=== PATIENT | male | born 1950 | race Caucasian/White ===

== ENCOUNTER 2017-12-26 07:52 | Day surgery (SDC) | payer MEDICARE ==
[~2017-12-26] VITALS: Ht 175.3 cm; Wt 113.2 kg
[~2017-12-26 07:52] MED LIST: ALLO300; AMLO10; Bactrim Ds Tab1 EACH; Benicar40 MG; COLE625; Carvedilol12.5 MG; DUTA.5; NAPR500; TAMS.4ER
== END 2017-12-26 09:54 | disposition home or self-care (01) ==
LOC: ORSCSDS 07:52
PROVIDERS: Internal Medicine Gastroenterology
PROC: 0DBM8ZX Excision of Descending Colon, Via Natural or Artificial Opening Endoscopic, Diagnostic (ICD-10-PCS; principal; 2017-12-26 09:00)
PROC: 0DBK8ZX Excision of Ascending Colon, Via Natural or Artificial Opening Endoscopic, Diagnostic (ICD-10-PCS; principal; 2017-12-26 09:00)
PROC: 0DBL8ZX Excision of Transverse Colon, Via Natural or Artificial Opening Endoscopic, Diagnostic (ICD-10-PCS; principal; 2017-12-26 09:00)
DX: Z12.11 Encounter for screening for malignant neoplasm of colon (principal); K63.5 Polyp of colon; D12.2 Benign neoplasm of ascending colon; D12.3 Benign neoplasm of transverse colon; D12.4 Benign neoplasm of descending colon; K64.8 Other hemorrhoids; K57.30 Diverticulosis of large intestine without perforation or abscess without bleeding; Z86.010 Personal history of colon polyps; E78.5 Hyperlipidemia, unspecified; G47.33 Obstructive sleep apnea (adult) (pediatric); I10 Essential (primary) hypertension; F17.210 Nicotine dependence, cigarettes, uncomplicated; Z79.899 Other long term (current) drug therapy
CPT/HCPCS: 82947; 88305; J7120

== ENCOUNTER 2018-12-18 16:23 | Emergency (ER) | payer OTHER, MEDICARE ==
[~2018-12-18] VITALS: Ht 175.3 cm; Wt 113.4 kg
[2018-12-18] MEDS ORDERED: IRBESARTAN-HCT1 EACH PO (17:13)
[2018-12-18] MEDS ORDERED: PIOG15 PO (17:13)
[2018-12-18] MEDS ORDERED: AMLO10 PO (17:13)
[2018-12-18] MEDS ORDERED: CARV25 PO (17:13)
[2018-12-18] MEDS ORDERED: TAMS.4ER PO (17:14)
[2018-12-18] MEDS ORDERED: ALLO300 PO (17:14)
[2018-12-18] MEDS ORDERED: HYDR1TAB94 PO (17:34)
== END 2018-12-18 17:41 | disposition home or self-care (01) ==
LOC: ER 16:23
DX: S20.212A Contusion of left front wall of thorax, initial encounter (principal); F17.200 Nicotine dependence, unspecified, uncomplicated; V49.9XXA Car occupant (driver) (passenger) injured in unspecified traffic accident, initial encounter
CPT/HCPCS: 71046; 99284-25

== ENCOUNTER 2022-05-09 10:19 | Day surgery (SDC) | payer MEDICARE, BC ==
[~2022-05-09] VITALS: Ht 175.3 cm; Wt 114.2 kg
[~2022-05-09 10:19] MED LIST changes: +ALLO300 PO; +AMLO10 PO; +CARV25 PO; +HYDR1TAB94 PO; +IRBESARTAN-HCT1 EACH PO; +PIOG15 PO; +TAMS.4ER PO
[2022-05-09] MEDS ORDERED: HYDCHL25 (10:41)
[2022-05-09] MEDS ORDERED: DUTA.5 (10:42)
== END 2022-05-09 13:10 | disposition home or self-care (01) ==
LOC: ORSCSDS 10:19
PROVIDERS: Internal Medicine Gastroenterology
PROC: 0DBL8ZX Excision of Transverse Colon, Via Natural or Artificial Opening Endoscopic, Diagnostic (ICD-10-PCS; principal; 2022-05-09 12:00)
PROC: 0DBK8ZX Excision of Ascending Colon, Via Natural or Artificial Opening Endoscopic, Diagnostic (ICD-10-PCS; principal; 2022-05-09 12:00)
DX: Z12.11 Encounter for screening for malignant neoplasm of colon (principal); Z86.010 Personal history of colon polyps; D12.2 Benign neoplasm of ascending colon; D12.3 Benign neoplasm of transverse colon; K57.30 Diverticulosis of large intestine without perforation or abscess without bleeding; K64.8 Other hemorrhoids; I10 Essential (primary) hypertension; E78.5 Hyperlipidemia, unspecified; G47.33 Obstructive sleep apnea (adult) (pediatric); Z79.899 Other long term (current) drug therapy; F17.210 Nicotine dependence, cigarettes, uncomplicated; E66.9 Obesity, unspecified; Z68.37 Body mass index [BMI] 37.0-37.9, adult; E11.9 Type 2 diabetes mellitus without complications; M10.9 Gout, unspecified; N40.0 Benign prostatic hyperplasia without lower urinary tract symptoms
CPT/HCPCS: 82947; 88305; J2370; J2704; J7120

== ENCOUNTER 2025-08-19 06:41 | Day surgery (SDC) | payer OTHER ==
[~2025-08-19] VITALS: Ht 175.3 cm; Wt 115.3 kg
[~2025-08-19 06:41] MED LIST changes: +HYDCHL25
[2025-08-19] MEDS ORDERED: LOSA25 (07:06)
[2025-08-19] MEDS ORDERED: OZEMPIC1 MG/0.72 (07:09)
[2025-08-19 09:19] VITALS: BP 121/66
== END 2025-08-19 09:13 | disposition home or self-care (01) ==
LOC: ORSCSDS 06:41
DX: Z12.11 Encounter for screening for malignant neoplasm of colon (principal); D12.0 Benign neoplasm of cecum; D12.2 Benign neoplasm of ascending colon; K57.30 Diverticulosis of large intestine without perforation or abscess without bleeding; Z86.0101 Personal history of adenomatous and serrated colon polyps; I10 Essential (primary) hypertension; E78.5 Hyperlipidemia, unspecified; G47.33 Obstructive sleep apnea (adult) (pediatric); E11.9 Type 2 diabetes mellitus without complications; N40.0 Benign prostatic hyperplasia without lower urinary tract symptoms; E66.01 Morbid (severe) obesity due to excess calories; Z68.37 Body mass index [BMI] 37.0-37.9, adult; Z79.85 Long-term (current) use of injectable non-insulin antidiabetic drugs; Z79.899 Other long term (current) drug therapy
CPT/HCPCS: 82947; 88305; J2704; J7120